=== PATIENT | female | born 1990 | race Caucasian/White ===

== ENCOUNTER → 2022-06-11 | Outpatient (CLI) | payer BC ==
[2022-06-11 17:36] LABS: CLUE CELLS OBSERVED (Not Observd)
[2022-06-12 06:28] LABS: HERPES SIMPLEX TYPE 1 IGG 1.15 Index (()); HERPES SIMPLEX TYPE 1 IGG INTP Positive (Negative)
== END ==
LOC: LAB 16:55
PROVIDERS: Nurse Practitioner Family
DX: L98.9 Disorder of the skin and subcutaneous tissue, unspecified (principal); K64.4 Residual hemorrhoidal skin tags; Z20.2 Contact with and (suspected) exposure to infections with a predominantly sexual mode of transmission
CPT/HCPCS: Q0111